=== PATIENT | male | born 1975 | race Caucasian/White ===

== ENCOUNTER 2023-12-28 15:45 | Outpatient (OUT) | payer BC, SELFPAY ==
--- NOTE | 2023-12-28 | XR_ITS ---
The [address] [address] Patient Name: LEXUS GUAMAN MRN: [id number] date: 1975 Sex: M Assigned Patient Location: [facility] Current Patient Location: Accession/Order Number: [id number] Exam Date: 12/28/2023 16:28 Report Date: 12/29/2023 07:14 At the request of: ALPA WALKER Procedure: XR abdomen 1V EXAMINATION: XR abdomen 1V HISTORY: changes in bowel habite R19.4 COMPARISON: No relevant comparison available. FINDINGS: BOWEL GAS PATTERN: No abnormal dilation or deviation. Minimal stool identified CALCIFICATIONS: None significant. OTHER: Negative. No abnormal gaseous collections. XR/XR abdomen 1V IMPRESSION: Normal bowel gas pattern Electronically authenticated by: OSBALDO SUTHERLAND Date: 12/29/2023 07:14
== END 2023-12-28 15:46 | disposition home or self-care (01) ==
LOC: RAD 15:48
PROVIDERS: PCP Nurse Practitioner Family; Visit Provider Nurse Practitioner Family
DX: R19.4 Change in bowel habit (principal)
CPT/HCPCS: 74018